=== PATIENT | male | born 2000 | race Caucasian/White ===

== ENCOUNTER 2021-08-27 14:59 | Outpatient (REF) | payer MEDICAID, SELFPAY ==
[2021-08-29 10:51] LABS: COVID-19 RT-PCR UVMMC Result Negative (Negative)
== END 2021-08-27 15:00 | disposition home or self-care (01) ==
LOC: NCHCN 14:59
PROVIDERS: Visit Provider Nurse Practitioner Family
DX: Z20.822 Contact with and (suspected) exposure to COVID-19 (principal); R05.9 Cough, unspecified
CPT/HCPCS: U0003